=== PATIENT | male | born 2005 | race Hispanic/Latino ===

== ENCOUNTER 2024-10-15 18:28 | Emergency (ER) | payer SELFPAY ==
[~2024-10-15] VITALS: Ht 177.8 cm; Wt 83.9 kg
[2024-10-15 19:24] VITALS: BP 132/87; PULSE 76; RESP 18; TEMP 97.8; O2SAT 96
--- NOTE | 2024-10-15 19:38 | NUR ---
SLING APPLIED TO THE RIGHT ARM AT THIS TIME, INTERVENTION TOLERATED WELL./ANDRE
[2024-10-15] MEDS: HYDROcodone/acetaMINOPHEN 10/325 MG TAB PO ONE (19:41)
--- NOTE | 2024-10-15 20:42 | ERN ---
General Chief Complaint: Upper Extremity Pain/Injury Stated Complaint: RT ARM PAIN S/P FALL Time Seen by MD: 18:29 History of Present Illness Initial Comments 18-year-old male presenting to the emergency department with right shoulder pain. Patient states he was walking his dog when he accidentally slipped and fell onto his right side. He reports falling on an outstretched arm. He believes he may have dislocated it at the time of falling however he was able to put it back in. Denies any history of dislocations. On arrival patient has painful range of motion of the right shoulder. Allergies: Coded Allergies: No Known Drug Allergies (Unverified Allergy, Unknown, 10/15/24) Past Medical History Past Medical History: No Pertinent History Past Surgical History: None ED Course Orders Procedure Category Date Status Time Shoulder Comp 2+Vws Rt RAD 10/15/24 Taken 19:30 Hydrocodone/Apap PHA 10/15/24 Complete Tab (Laurier 10) 20:00 Sling NA 10/15/24 In Process 19:31 Current Medications Medications (Trade) Dose Ordered Sig/Gregorio Route PRN Reason Start Time Stop Time Status Last Admin Dose Admin Acetaminophen/ Hydrocodone Bitart (NORco 10) 1 tab ONCE ONCE PO 10/15/24 20:00 10/15/24 20:01 DC 10/15/24 19:41 Vital Signs Date Time Temp Pulse Resp B/P (MAP) Pulse Ox O2 Delivery O2 Flow Rate FiO2 10/15/24 19:24 97.9 76 18 132/87 96 Room Air* 0 21 10/15/24 18:28 97.9 79 14 136/87 95 Room Air 0 DX & DISP Disposition: Discharge Departure Impression: Primary Impression: Right shoulder strain Condition: Stable Additional Instructions: Your right shoulder x-ray does not show any evidence of a fracture or dislocation. You were placed on a sling for supportive management. You may take Tylenol and Motrin for pain. You will need to see an hris specialist for outpatient evaluation. Follow up with PCP in 2-3 days for repeat evaluation. Return to the ER for any new or worsening symptoms Referrals: SELF,REFERRAL (PCP) TUNDE CLEMENTE MD Time of Disposition: 20:41 I have reviewed the case, and I agree with, Diagnosis and Plan I performed the substantive portion of the visit. I have reviewed and personally made and approve the management plan that is documented in the note by myself or the NELDA. I acknowledge for responsibility for the patient's management plan. SAM DE LOS SANTOS Oct 15, 2024 20:42
--- NOTE | 2024-10-15 21:31 | HMCIMG ---
SHOULDER COMP 2+VWS RT CLINICAL HISTORY: fall/pain COMPARISON: None TECHNIQUE: 2 images were obtained. FINDINGS: No obvious fracture or dislocation. No joint effusion. The soft tissues appear unremarkable. No radiopaque foreign bodies. IMPRESSION: No acute findings.
== END 2024-10-15 20:54 | disposition home or self-care (01) ==
LOC: EDH 18:28
DX: S46.811A Strain of other muscles, fascia and tendons at shoulder and upper arm level, right arm, initial encounter (principal); W01.0XXA Fall on same level from slipping, tripping and stumbling without subsequent striking against object, initial encounter; Y93.K1 Activity, walking an animal; Y92.89 Other specified places as the place of occurrence of the external cause; Y99.8 Other external cause status
CPT/HCPCS: 73030; 99283